=== PATIENT | female | born 1965 | race Caucasian/White ===

== ENCOUNTER 2017-07-31 13:36 | Emergency (ER) | payer OTHER, SELFPAY ==
[2017-07-31 13:36] VITALS: BP 124/99; PULSE 88; RESP 20; TEMP 36.6; O2SAT 99; BMI 28.8
--- NOTE | 2017-07-31 14:22 | CT_ITS ---
STUDY: CT ABDOMEN AND PELVIS WITHOUT CONTRAST REASON FOR EXAM: Female, 52 years old. Low back pain. History of kidney stones. RADIATION DOSAGE (If Supplied By Facility): CTDIvol = ( 18.32 ) mGy, DLP = ( 1083.75 ) mGycm TECHNIQUE: Transaxial images were obtained from the dome of the diaphragm to the symphysis pubis without oral contrast, and without intravenous contrast. Sagittal and coronal images were reconstructed. Individualized dose optimization techniques were used for this CT. COMPARISON: Comparison is made with prior study dated August 04, 2014. FINDINGS: Stable mild degree of dependent bibasilar atelectasis. The visualized portions of the heart are within normal limits. Normal liver. Normal gallbladder and extrahepatic biliary system. Normal spleen. Normal pancreas. Normal bilateral adrenal glands. Normal right kidney. Normal left kidney. Normal visualized stomach. Normal small intestine. There are scattered colonic diverticula consistent with diverticulosis. The appendix is visualized and appears normal. Normal abdominal aorta. Normal inferior vena cava. There is borderline retroperitoneal lymphadenopathy with enlarged nodes no greater than 10mm in the short axis diameter. Several small rounded nodular densities are seen in the peritoneal fat in the right mid abdomen just distal to the kidney on the right side. This may represent mesenteric adenitis. Normal urinary bladder. The previously seen ileostomy has been reversed. There is a small umbilical hernia containing fat. Spondylolysis of the pars interarticularis of the L5 vertebrae. The patient is status post right total hip replacement. CT/Abdomen/Pelvis without Cont IMPRESSION: Possible right mesenteric adenitis. Reversal of the prior ileostomy. Electronically Signed: Geovanni Felton MD at 15:53 EDT Tel [phone], Service support ,
[2017-07-31 14:58] LABS: Bacteria 0 SEEN /hpf (None Seen); Mucous, Urine 0 SEEN /hpf (<or=2+); Red Blood Cells-Urine 0 SEEN /hpf (0-5)
[2017-07-31 15:01] LABS: Color, Urine Yellow (Yellow); Glucose, Dipstick Normal (Normal); Ketone-Dipstick 50 mg/dl (Negative); Leukocyte Esterase-Dipstick 25 /ul (Negative); Nitrite-Dipstick Negative (Negative); Occult Blood-Urine Negative /ul (Negative); Protein-Dipstick 15 mg/dl (Negative); Urine Bilirubin Dipstick 1 mg/dL (Negative); Urine Clarity Clear (Clear); Urine Urobilinogen 4 mg/dl (Normal)
[2017-07-31 15:01] LABS: Absolute Lymphocyte Count 1.61 X10^3/ul (0.83-4.51); Absolute Neutrophil Count 5.5 X10^3/uL (2.0-7.7); Basophil# 0.02 X10^3/uL; Basophil% 0.3 % (0-1); Eosinophils% 1.3 % (0-5); Hematocrit 46.9 % (37-47); Hemoglobin 15.9 g/dl (12.0-15.0); Lymphocyte # 1.61 X10^3/ul (4.0); Lymphocyte % 20.7 % (19-41); Mean Corp Hgb Conc 33.9 g/gl (32-36); Mean Corpuscular Hgb 28.4 pg (27.0-32.0); Mean Corpuscular Volume 83.8 fL (81-99); Mean Platelet Vol. 10.5 fl (6.2-12.0); Monocyte# 0.55 X10^3/uL; Monocyte% 7.1 % (0-10); Neutrophil # 5.49 X10^3/uL (2.7-7.7); Neutrophil % 70.5 % (47-70); POSITIVE COUNT NO; POSITIVE DIFFERENTIAL NO; POSITIVE MORPHOLOGY NO; Platelet Count 253 K/mm3 (150-450); RBC Distribution Width CV 12.8 % (11.6-14.6); RBC Distribution Width SD 38.4 fl (35.1-43.9); White Blood Count 7.8 K/mm3 (4.4-11.0)
[2017-07-31 15:06] LABS: Squamous Epithelial Cells - UA 0-5 SEEN /hpf (5-10); White Blood Cells 0-5 SEEN /hpf (0-5)
[2017-07-31] MEDS: Ketorolac 30 MG/ML Syringe IV (15:06)
[2017-07-31] MEDS: Ondansetron 4 MG/2 ML Vial IV (15:06)
[2017-07-31 15:13] LABS: Anion Gap 7 (5-15); BUN 22 mg/dL (7-18); BUN/Creat Ratio 25.9 RATIO (10-20); Calcium,Total 9.4 mg/dL (8.5-10.1); Chloride 100 mmol/L (98-107); Creatinine, Serum 0.85 mg/dL (0.55-1.02); EST Glomerular Filtration Rate 75 mL/min (>60); Est Glom Filt Rate - Afr Amer 91 mL/min (>60); Estimated Creatinine Clearance 82.75 ml/min; Glucose 106 mg/dL (74-106); Potassium 3.2 mmol/L (3.5-5.1); Sodium Level 138 mmol/L (136-145)
[2017-07-31] MEDS: HYDROmorphone 1 MG/ML Syringe IV (16:07)
--- NOTE | 2017-07-31 16:46 | ED.DCSUM_ITS ---
- ER Visit Summary Date of Service: 07/31/17 Chief Complaint: Back pain History of Present Illness: The patient is a 52 F presenting with left lower back pain. She states this started suddenly while she was seated doing her makeup. She has pain in the left low back. It does not radiate to her legs. She denies fever or chills. Denies chest pain or shortness of breath. Denies weakness or numbness. Denies bowel or bladder incontinence. Denies dysuria or hematuria. Physical Examination: Vitals are stable. Patient is afebrile. Alert no acute distress. HEENT exam is unremarkable. Neck is supple. Lungs are clear and equal bilaterally. Heart is regular rate and rhythm. Abdomen is soft nontender nondistended. Back; left paraspinal muscle tenderness, no midline tenderness. Extremities are unremarkable. Skin is warm and dry. No focal neurologic deficit. Normal strength and sensation Remainder of exam is unremarkable. Emergency Department Course and Treatment: Patient is given Toradol, Zofran and continues to have pain. She was then given Dilaudid with improvement. CBC is unremarkable. Chemistries show potassium 3.2, BUN 22. Urinalysis positive for ketones, 0-5 white cells. She was given IV fluids. CT abdomen pelvis without contrast shows possible mesenteric adenitis. There is borderline retroperitoneal lymphadenopathy with enlarged nodes no greater than 10mm in the short axis diameter. Several small rounded nodular densities are seen in the peritoneal fat in the right mid abdomen just distal to the kidney on the right side. This may represent mesenteric adenitis. She is advised to follow-up with her primary care physician for these findings. She has improvement of her pain on reevaluation. Advised return to ED for any worsening complaints. Disposition: Discharged home Impression: Acute back pain This note was generated with [employer] dictation software. It may contain incorrect words, spelling, and punctuation that were not noted in review of the chart prior to signing ED Disposition - Plan for ED Patient: Chief Complaint: Back Referrals: Alex Keane DO [Primary Care Provider] -
--- NOTE | 2017-07-31 16:57 | ED.DEP ---
ED Disposition - Plan for ED Patient: Chief Complaint: Back Instructions: ED Flank Pain Uncertain Cause Prescriptions: Naproxen [Naprosyn] 500 mg PO BID PRN #20 tablet Cyclobenzaprine [Flexeril] 10 mg PO TID PRN #20 tablet PRN Reason: Muscle Spasm Referrals: Alex Keane DO [Primary Care Provider] -
[2017-07-31 17:26] VITALS: BP 118/84; PULSE 87; RESP 16; O2SAT 97
--- NOTE | 2017-07-31 17:27 | ED.RN ---
REVIEWED D/C INSTRUCTIONS, FOLLOW UP CARE, PRESCRIPTIONS, AND S/S THAT WOULD WARRANT A RETURN TO THE ED WITH PT. PT VERBALIZED AN UNDERSTANDING AND DENIES FURTHER QUESTIONS FOR THIS RN. PT SKIN P/W/D, RESP EVEN AND UNLABORED, PT A&O X 3, NO DISTRESS NOTED. PT AMBULATED OUT OF ED, GAIT STEADY.
== END 2017-07-31 17:28 | disposition home or self-care (01) ==
PROVIDERS: Emergency Provider Emergency Medicine; Family Provider Family Medicine; PCP Family Medicine
DX: M54.5 Low back pain (principal); Z79.899 Other long term (current) drug therapy
CPT/HCPCS: 74176; 80048; 81001; 85025; 96374; 96375; 99283; J7030; J7040; A4216; J2405

== ENCOUNTER 2019-01-11 12:17 | Emergency (ER) | payer OTHER, SELFPAY ==
[2019-01-11 12:17] VITALS: BP 154/76; PULSE 70; RESP 16; TEMP 36.3; O2SAT 97; BMI 32.6
--- NOTE | 2019-01-11 13:16 | RAD_ITS ---
STUDY: X-RAY - RIGHT KNEE REASON FOR EXAM: Female, 53 years old. Knee pain. TECHNIQUE: 4 view(s) of the knee. COMPARISON: None. FINDINGS: Normal visualized distal femur. Normal visualized proximal tibia and fibula. Normal proximal tibiofibular articulation. There is no demonstrated fracture. There is chondrocalcinosis of the medial and lateral joint compartments. There is mild narrowing of the medial joint compartment. Normal patellofemoral articulation. There is no demonstrated joint effusion. The soft tissue structures are unremarkable. RAD/Knee 4 or More Views IMPRESSION: Degenerative arthrosis. Electronically Signed: Rmairo Garcia MD at 13:36 EST Tel , Service support ,
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
[2019-01-11 14:03] VITALS: RESP 16
== END 2019-01-11 14:03 | disposition home or self-care (01) ==
PROVIDERS: Emergency Provider Emergency Medicine; Family Provider Family Medicine; PCP Family Medicine
DX: S76.811A Strain of other specified muscles, fascia and tendons at thigh level, right thigh, initial encounter (principal); E66.9 Obesity, unspecified; K21.9 Gastro-esophageal reflux disease without esophagitis; Z87.891 Personal history of nicotine dependence; X50.1XXA Overexertion from prolonged static or awkward postures, initial encounter; Y93.01 Activity, walking, marching and hiking; Y92.89 Other specified places as the place of occurrence of the external cause; Y99.8 Other external cause status
CPT/HCPCS: 73564; 99282

== ENCOUNTER → 2020-06-16 10:40 | Outpatient (CLI) | payer OTHER, SELFPAY ==
--- NOTE | 2020-06-16 10:40 | EKG12_ITS ---
Test Reason : PREOP Blood Pressure : / mmHG Vent. Rate : 071 BPM Atrial Rate : 071 BPM P-R Int : 166 ms QRS Dur : 076 ms QT Int : 374 ms P-R-T Axes : 052 -01 040 degrees QTc Int : 406 ms Normal sinus rhythm Normal ECG Confirmed by AYDIN KURTZ, WALLACE ([id number]), field map editor CLOVIS OWENS ([id number]) on 06/17/2020 11:53:18 AM Referred By: Rustam Hurley Confirmed By:WALLACE PERRIN MD
[2020-06-16 11:29] LABS: Hematocrit 45.7 % (37-47); Hemoglobin 14.3 g/dL (12.0-15.0); Mean Corp Hgb Conc 31.3 g/dL (32-36); Mean Corpuscular Hgb 27.4 pg (27.0-32.0); Mean Corpuscular Volume 87.5 fL (81-99); Mean Platelet Vol. 10.4 fl (6.2-12.0); Platelet Count 275 K/mm3 (150-450); RBC Distribution Width CV 12.8 % (11.6-14.6); Red Blood Count 5.22 M/mm3 (4.2-5.4); White Blood Count 7.8 K/mm3 (4.4-11.0)
[2020-06-16 12:14] LABS: Anion Gap 3 (5-15); BUN 16 mg/dL (7-18); BUN/Creat Ratio 18.9 RATIO (10-20); Calcium,Total 9.4 mg/dL (8.5-10.1); Chloride 105 mmol/L (98-107); Creatinine, Serum 0.85 mg/dL (0.55-1.02); EST Glomerular Filtration Rate 75 mL/min (>60); Est Glom Filt Rate - Afr Amer 90 mL/min (>60); Glucose 102 mg/dL (74-106); Potassium 4.3 mmol/L (3.5-5.1); Sodium Level 138 mmol/L (136-145)
== END ==
PROVIDERS: PCP Student in an Organized Health Care Education/Training Program; Referring Provider Physician Assistant; Visit Provider Physician Assistant
DX: Z01.818 Encounter for other preprocedural examination (principal); Z11.52 Encounter for screening for COVID-19
CPT/HCPCS: 36415; 80048; 85027; 87426; 93005; C9803

== ENCOUNTER → 2022-12-20 | Outpatient (CLI) | payer OTHER, SELFPAY ==
--- NOTE | 2022-12-20 11:13 | EKG12_ITS ---
Test Reason : PRE-OP Blood Pressure : / mmHG Vent. Rate : 069 BPM Atrial Rate : 069 BPM P-R Int : 162 ms QRS Dur : 072 ms QT Int : 374 ms P-R-T Axes : 041 -12 050 degrees QTc Int : 400 ms Normal sinus rhythm Normal ECG Confirmed by EDUIN KURTZ, JONA ([id number]), editor greeting card RICK SERRA ([id number]) on 12/21/2022 10:07:49 AM Referred By: Ramon Olmos Confirmed By:JONA DENNY MD
[2022-12-20 11:59] LABS: Hematocrit 44.7 % (37-47); Mean Corp Hgb Conc 31.3 g/dL (32-36); Mean Corpuscular Hgb 27.2 pg (27.0-32.0); Mean Corpuscular Volume 86.8 fL (81-99); Mean Platelet Vol. 10.2 fl (6.2-12.0); Platelet Count 307 K/mm3 (150-450); RBC Distribution Width CV 13.1 % (11.6-14.6); RBC Distribution Width SD 41.6 fl (35.1-43.9); Red Blood Count 5.15 M/mm3 (4.2-5.4); White Blood Count 6.6 K/mm3 (4.4-11.0)
[2022-12-20 13:28] LABS: Anion Gap 5 (5-15); BUN 24 mg/dL (7-18); BUN/Creat Ratio 31.2 RATIO (10-20); Calcium,Total 9.6 mg/dL (8.5-10.1); Chloride 108 mmol/L (98-107); Creatinine, Serum 0.77 mg/dL (0.55-1.02); EST Glomerular Filtration Rate 83 mL/min (>60); Est Glom Filt Rate - Afr Amer 100 mL/min (>60); Glucose 101 mg/dL (74-106); Potassium 4.4 mmol/L (3.5-5.1); Sodium Level 141 mmol/L (136-145)
== END | disposition home or self-care (01) ==
PROVIDERS: PCP Nurse Practitioner Primary Care; Referring Provider Otolaryngology; Visit Provider Otolaryngology
DX: Z01.818 Encounter for other preprocedural examination (principal)
CPT/HCPCS: 36415; 80048; 85027; 93005

== ENCOUNTER → 2023-02-05 | Outpatient (CLI) | payer OTHER, SELFPAY ==
[2023-02-05 13:56] LABS: Hematocrit 45.2 % (37-47); Hemoglobin 14.5 g/dL (12.0-15.0); Mean Corp Hgb Conc 32.1 g/dL (32-36); Mean Corpuscular Hgb 27.5 pg (27.0-32.0); Mean Corpuscular Volume 85.6 fL (81-99); Mean Platelet Vol. 9.7 fl (6.2-12.0); Platelet Count 311 K/mm3 (150-450); RBC Distribution Width CV 13.5 % (11.6-14.6); RBC Distribution Width SD 41.7 fl (35.1-43.9); Red Blood Count 5.28 M/mm3 (4.2-5.4); White Blood Count 7.5 K/mm3 (4.4-11.0)
[2023-02-05 14:26] LABS: Anion Gap 4 (5-15); BUN 18 mg/dL (7-18); Calcium,Total 9.6 mg/dL (8.5-10.1); Chloride 106 mmol/L (98-107); Creatinine, Serum 0.78 mg/dL (0.55-1.02); EST Glomerular Filtration Rate 81 mL/min (>60); Est Glom Filt Rate - Afr Amer 98 mL/min (>60); Glucose 99 mg/dL (74-106); Potassium 4.2 mmol/L (3.5-5.1); Sodium Level 137 mmol/L (136-145)
== END | disposition home or self-care (01) ==
LOC: LAB 13:39
PROVIDERS: PCP Nurse Practitioner Primary Care; Referring Provider Otolaryngology; Visit Provider Otolaryngology
DX: Z01.818 Encounter for other preprocedural examination (principal)
CPT/HCPCS: 36415; 80048; 85027

== ENCOUNTER → 2023-04-02 | Outpatient (CLI) | payer OTHER, MEDICAID, SELFPAY ==
--- OUTSIDE RECORDS SUMMARY | 2023-04-02 10:26 | XMS RPT_ITS | CCD ---
Author Name Unknown Address [address] [place] [address] Organization [facility] Care Team Providers Care Road Machine Operator Name Role Phone ARLENE ROBLES Unavailable Unavailable ARLENE ROBLES Unavailable Unavailable LUDWIN CRAWFORD Unavailable Elmer RODRIGUEZ DO, DR MARQUEZ Primary Care Physician [phone] SHARMAINE ARRIAGA, ANNA Primary Care Physician ANNA GRAVES Attending Sameer ARRIAGA, [facility] Primary Care NELA Sutherland MD Attending Unavailable SHARMAINE ARRIAGA, [facility] Primary Care Sameer RODRIGUEZ DO, DR MARQUEZ Primary Care Unavailable ARLENE ROBLES MD Attending Leeann RODRIGUEZ DO, DR MARQUEZ Primary Care Unavailable ARLENE ROBLES MD Attending Leeann ARRIAGA, [facility] Primary Care MARCOS Craig DO Attending Unavailable MARCOS SCHREIBER DO Attending Unavailable SHARMAINE ARRIAGA, [facility] Primary Care Sameer ARRIAGA, [facility] Primary Care MARCOS Craig DO Attending Unavailable SHARMAINE ARRIAGA, [facility] Primary Care Sameer ARRIAGA, ANNA Attending Sameer awad Allergies Allergy Classification Reported Allergen(s) Allergy Type Date of Onset Reaction(s) Facility (4 sources) Aspirin; Translations: [aspirin] Drug Allergy Nausea (finding) [facility] (4 sources) Morphine; Translations: [morphine] Drug Allergy Weal (disorder) [facility] Medications Current Medications Medication Drug Class(es) Dates Sig (Normalized) Sig (Original) meloxicam 15 mg oral tablet (4 sources) Nonsteroidal Anti-inflammatory Drug Start: 08-04-2020 meloxicam 15 mg oral tablet Dose : 15 mg = 1 tab(s), Oral, qDay, # 30 tab(s), 0 Refill(s) Start Date: 08/04/20 Status: Ordered MiscMED Miscellaneous Medication (4 sources) Start: 04-30-2022 MiscMED Miscellaneous Medication See Instructions, pt takes B1, B3, B6, and B12 supplements, unsure of the dose, 0 Refill(s), 99.5 Start Date: 04/30/22 Status: Ordered Completed/Discontinued Medications Medication Drug Class(es) Dates Sig (Normalized) Sig (Original) LORazepam 1 mg oral tablet (4 sources) Benzodiazepine Start: 08-06-2019 LORazepam 1 mg oral tablet Dose : 1 mg = 1 tab(s), Oral, TID, PRN as needed for anxiety, 0 Refill(s), 97.7 Start Date: 08/06/19 Status: Ordered Problems Active Problems Problem Classification Problem Date Documented Date Episodic/Chronic Anxiety disorders (4 sources) Anxiety 01-07-2020 Chronic Cardiac dysrhythmias (4 sources) Palpitations 01-08-2020 Episodic Deficiency and other anemia (4 sources) Anemia 08-06-2019 Episodic Diabetes mellitus without complication (3 sources) Prediabetes; Translations: [Prediabetes] 04-30-2022 Episodic Diverticulosis and diverticulitis (4 sources) Diverticular disease 01-08-2020 Chronic Esophageal disorders (4 sources) Gastroesophageal reflux disease 01-07-2020 Chronic Nonspecific chest pain (4 sources) Left sided chest pain 01-08-2020 Episodic Nutritional deficiencies (5 sources) Vitamin D deficiency; Translations: [Vitamin D deficiency, unspecified] 08-06-2019 Chronic Other eye disorders (4 sources) Pain in eye 01-08-2020 Episodic Other lower respiratory disease (4 sources) Rib pain 01-08-2020 Episodic Other lower respiratory disease (2 sources) Snoring 04-30-2022 Episodic Other nutritional; endocrine; and metabolic disorders (4 sources) Hypercalcemia 08-06-2019 Chronic Other nutritional; endocrine; and metabolic disorders (6 sources) Obesity 08-06-2019 Chronic Other nutritional; endocrine; and metabolic disorders (2 sources) Weight gain 04-30-2022 Episodic Residual codes; unclassified (2 sources) Frequent night waking 04-30-2022 Chronic Residual codes; unclassified (4 sources) Insomnia 01-07-2020 Episodic Residual codes; unclassified (2 sources) History of partial resection of colon 06-27-2022 Episodic Screening and history of mental health and substance abuse codes (4 sources) Ex-smoker 01-08-2020 Episodic Thyroid disorders (4 sources) Hyperthyroidism 08-06-2019 Chronic Unclassified (1 source) Unknown / UNK(Unknown) Onset: 09-06-2016 Unclassified (4 sources) History of clinical finding in subject 01-08-2020 Unclassified (4 sources) Patient encounter status 04-30-2022 Past or Other Problems Problem Classification Problem Date Documented Da te Episodic/Chronic Unclassified (1 source) E05.90 Onset: 09-06-2016 Results Test Name Value Interpretation Reference Range Facil ity Encounters Encounter Date Encounter Type Care Provider Facility Start: 12-06-2022 End: 12-07-2022 ambulatory NELA LOTT MD Facility:A Start: 11-28-2022 ambulatory MARCOS SCHREIBER DO Facility :B Start: 10-25-2022 End: 10-26-2022 ambulatory ANNA SEBRIANA VOICE WRITING REPORTER-COMBAT SYSTEMS OFFICER Facility:B Start: 10-25-2022 End: 10-25-2022 Patient encounter procedure ANNA SEFFENS VOICE WRITING REPORTER-COMBAT SYSTEMS OFFICER Issue Outpatient Lab Start: 10-02-2022 ambulatory ANNA SEFFEN S VOICE WRITING REPORTER-COMBAT SYSTEMS OFFICER Facility:B Start: 07-24-2022 ambulatory ANNA SEFFEN S VOICE WRITING REPORTER-COMBAT SYSTEMS OFFICER Facility:B Start: 07-03-2022 End: 07-04-2022 ambulatory ANNA SEFFENS VOICE WRITING REPORTER-COMBAT SYSTEMS OFFICER Facility:B Start: 07-03-2022 End: 07-03-2022 Patient encounter procedure ANNA SEFFENS VOICE WRITING REPORTER-COMBAT SYSTEMS OFFICER [facility] Start: 04-19-2022 End: 04-20-[address] ALMA RODRIGUEZ DO Facility:B Start: 04-19-2022 End: 04-19-2022 Patient encounter procedure ARLENE ROBLES MD Issue Outpatient Lab Start: 04-10-2022 End: 04-11-[address] ALMA RODRIGUEZ DO Facility:B Start: 04-10-2022 End: 04-10-2022 Patient encounter procedure ARLENE ROBLES MD Issue Outpatient Lab Start: 09-06-2016 End: 09-07-2016 Ambulatory ARLENE ROBLES Facility:[facility] Procedures Date Procedure Procedure Detail Performing Clinician Start: 11-02-2014 Ileostomy operation JAMI ROBLES MD Immunizations Immunization Date Immunization Notes Care Provider Fa cili 01-08-2020 influenza, injectabl e, quadrivalent, preservative free; Translations: [Fluarix PF Quadrivalent ] ARLENE ROBLES MD [facility] Issue Payers Date Payer Category Payer Unknown [id number] 2016 Unknown [id number] 1965 Unknown [id number] 2.16.8 [id number] 1965 Unknown [id number] 2.16.8 [id number] 1967 Unknown [id number] 2.16.8 [id number] 1965 Unknown [id number] 2.16.8 [id number] 1967 Unknown [id number] 2.16.8 [id number] 1967 Unknown [id number] 2.16.8 [id number] 1967 Unknown [id number] 2.16.8 [id number] 1965 Unknown [id number] 2.16.8 [id number] Social History Date Type Detail Facility Start: 08-06-2019 Tobacco smoking status Ex-smoker (fi nding) [facility] Sex Assigned At Female [facility] Evaluation + Plan note Note Date & Type Note Facility Evaluation + Plan note Future Appointments Appointment Date:04/12/2022 03:30:00 PM Scheduled Provider:ARLENE ROBLES MD Location:[facility] Appointment Type:ENDO OV [facility] Evaluation + Plan note LaboratoryRadiology Note Date & Type Note Facility Evaluation + Plan note Future Appointments Appointment Date:10/30/2022 01:40:00 PM Scheduled Provider:DOMINIQUE JASMINE APRN, CNP Location:[facility] Appointment Type:PC OV Follow Up Future Scheduled [id number] Hemoglobin 04/30/22Lipid Profile 04/30/22Vitamin D Level 04/30/22Complete Metabolic Panel 04/30/22MA Mammo Screening Bilateral w/ All 05/14/22 [facility] Evaluation + Plan note Radiology Note Date & Type Note Facility Evaluation + Plan note Future Appointments Appointment Date:10/31/2022 01:30:00 PM Scheduled Provider:ANNA SCHMID Location:[facility] Appointment Type:PC OV Follow Up Appointment Date:12/06/2022 08:00:00 PM Scheduled Provider: Location:[facility] Appointment Type:FREDO C-PAP (Continuous Positive Airway Pre Future Scheduled TestsMA Mammo Screening Bilateral w/ All 05/14/22 [facility] Hospital course Narrative Note Date & Type Note Facility Hospital course Narrative No data available for this section [facility] Hospital Discharge instructions Note Date & Type Note Facility Hospital Discharge instructions No data available for this section [facility] Progress note Note Date & Type Note Facility Progress note No data available for this section [facility] Summary Purpose Family History No Family History Records Found No data available for this section No Family History Records Found Advance Directives No Advanced Directives Records FoundNo Advanced Directives Records Found Additional Source Comments INFORMATION SOURCE (unrecogn ized section and content) DATE CREATED AUTHOR AUTHOR'S ORGANDEONTE ATION 12/19/2022 [facility] ([place]) Care Team (unrecognized sect ion and content) Care Team Personnel Name: Malena Salas Position: Quality Review Member Role: Talent Acquisition Project Manager Name: ALMA RODRIGUEZ DO Position: P4 Physician - Primary Care Member Role: Primary Care Physician Address: Address: [address] [place] [address] Care Team Related Persons Name: MARLENE RAPHAEL Address: Home [address] [place], [place] [id number] [place] Name: INGA RAPHAEL Address: Home [address] [place], [place] [id number] Care Team Personnel Name: Malena Salas Position: Quality Review Member Role: Talent Acquisition Project Manager Name: ALMA RODRIGUEZ DO Position: P4 Physician - Primary Care Member Role: Primary Care Physician Address: Address: [address] [place] [address] Care Team Related Persons Name: MARLENE RAPHAEL Address: Home [address] [place], [place] [id number] [place] Name: INGA RAPHAEL Address: Home [address] [place], [place] [id number] Patient Care team informatio n (unrecognized section and content) Care Team Personnel Name: Malena Salas [employer] Position: Quality Review Member Role: Talent Acquisition Project Manager Name: ANNA SCHMID Position: P4 Advanced Tube Mill Operator Member Role: Primary Care Physician Address: Address: [address] [place] [address] Care Team Related Persons Name: MARLENE RAPHAEL Address: [address] [place] [place] [id number] Care Team Personnel Name: aMlena SalasltSuni Position: Quality Review Member Role: Talent Acquisition Project Manager Name: ANNA SCHMID NHAN-COMBAT SYSTEMS OFFICER Position: P4 Advanced Tube Mill Operator Member Role: Primary Care Physician Address: Address: [address] [facility] [address] [facility] [place], [place] [address] Care Team Related Persons Name: MARLENE RAPHAEL Address: Home [address] [place], [place] [phone] FOR RECORDS PERTAINING TO PATIENTS WHO ARE OR HAVE BEEN ENROLLED IN A CHEMICAL DEPENDENCY/SUBSTANCEABUSE PROGRAM, SOME INFORMATION MAY BE OMITTED. This clinical summary was aggregated from multiple sources. Caution should be exercised in using it in the provision of clinical care. This summary normalizes information from multiple sources, and as a consequence, information in this document may materially change the coding, format and clinical context of patient data. In addition, data may be omitted in some cases. CLINICAL DECISIONS SHOULD BE BASED ON THE PRIMARY CLINICAL RECORDS. [facility]. provides no warranty or guarantee of the accuracy or completeness of information in this document.
[2023-04-02 10:55] LABS: Hematocrit 44.8 % (37-47); Hemoglobin 14.4 g/dL (12.0-15.0); Mean Corp Hgb Conc 32.1 g/dL (32-36); Mean Corpuscular Hgb 27.6 pg (27.0-32.0); Mean Platelet Vol. 9.7 fl (6.2-12.0); Platelet Count 314 K/mm3 (150-450); RBC Distribution Width CV 13.4 % (11.6-14.6); Red Blood Count 5.21 M/mm3 (4.2-5.4); White Blood Count 7.3 K/mm3 (4.4-11.0)
[2023-04-02 11:23] LABS: Anion Gap 1 (5-15); BUN 19 mg/dL (7-18); BUN/Creat Ratio 25.1 RATIO (10-20); Calcium,Total 9.8 mg/dL (8.5-10.1); Chloride 104 mmol/L (98-107); Creatinine, Serum 0.76 mg/dL (0.55-1.02); EST Glomerular Filtration Rate 84 mL/min (>60); Est Glom Filt Rate - Afr Amer 102 mL/min (>60); Glucose 102 mg/dL (74-106); Potassium 4.1 mmol/L (3.5-5.1); Sodium Level 135 mmol/L (136-145)
== END | disposition home or self-care (01) ==
PROVIDERS: PCP Nurse Practitioner Primary Care; Referring Provider Otolaryngology; Visit Provider Otolaryngology
DX: Z01.818 Encounter for other preprocedural examination (principal)
CPT/HCPCS: 36415; 80048; 85027; 93005

== ENCOUNTER 2023-04-15 15:21 | Outpatient (CLI) | payer OTHER, MEDICAID, SELFPAY ==
--- NOTE | 2023-04-15 12:10 | NASAL_PTH ---
PATHOLOGY RESULTS PATIENT: KRISTEN RAPHAEL LOC: [facility]#:[id number] AGE/SX: 58/F ROOM: RE04/15/[address]: Dr. Ramon Olmos MD : 1965 BED: DIS: 04/15/2023 SPEC #: [id number] RECD: 04/16/23 08:45 STATUS: ROSINA REQ #: [id number] BEVERLY: 04/15/23 12:[address]: Ramon Olmos DEPT: SURGICAL PATHOLOGY RECD BY: Christa Bee ENTERED: 04/16/23 08:46 SP TYPE: NASAL SPEC OTHR DR: Suzi Martin NP [facility] Tissues: Nasal septum, NOS Procedures: Decalcification bone/plaque Surgery Specimen Level III HEADER OPERATION: Septoplasty, submucous resection of inferior turbinates PRE-OP DIAGNOSIS: Deviated nasal septum, obstructive sleep apnea, nasal congestion TISSUE SUBMITTED: Nasal septum MICROSCOPIC DIAGNOSIS Nasal septum: Fragments of cartilage and bone, clinically deviated nasal septum. SJ:ernesto 04/22/2023 MICROSCOPIC DESCRIPTION Slides are reviewed. GROSS DESCRIPTION Received in fixative is one container labeled with the patient's name and designated nasal septum. The specimen consists of multiple irregular fragments of white-call bone and cartilage that in aggregate measure 3.5 x 3.0 x 0.2 cm. The specimen is totally submitted in one cassette after decalcification. / AM:ernesto 04/16/2023 TC:5 CPT: 81239, 73740
--- OUTSIDE RECORDS SUMMARY | 2023-04-15 19:59 | XMS RPT_ITS | CCD ---
Author Name Unknown Address [address] [place] [address] Organization [facility] Care Team Providers Care Director Religious Education Name Role Phone ARLENE ROBLES Unavailable Unavailable ARLENE ROBLES Unavailable Unavailable LUDWIN CRAWFORD Unavailable Elmer RODRIGUEZ DO, DR MARQUEZ Primary Care Physician [phone] SHARMAINE ARRIAGA, ANNA Primary Care Physician ANNA GRAVES Attending Sameer ARRIAGA, [facility] Primary Care NELA Sutherland MD Attending Unavailable SHARMAINE ARRIAGA, [facility] Primary Care Sameer RODRIGUEZ DO, DR MARQUEZ Primary Care Unavailable ARLENE ROBLES MD Attending Leeann RODRIGUEZ DO, DR MARQUEZ Primary Care Unavailable ARLENE ROBLES MD Attending Leeann ARRIAGA, [facility] Primary Care MARCOS Craig DO Attending Unavailable MARCOS SCHREIBER DO Attending Unavailable SHARMAINE ARRIAGA, [facility] Primary Care Sameer ARRIAGA, [facility] Primary Care MARCOS Craig DO Attending Unavailable SHARMAINE ARRIAGA, [facility] Primary Care Sameer ARRIAGA, ANNA Attending Sameer awad Allergies Allergy Classification Reported Allergen(s) Allergy Type Date of Onset Reaction(s) Facility (4 sources) Aspirin; Translations: [aspirin] Drug Allergy Nausea (finding) [facility] (4 sources) Morphine; Translations: [morphine] Drug Allergy Weal (disorder) [facility] Medications Current Medications Medication Drug Class(es) Dates [...] Start: 10-25-2022 End: 10-26-2022 ambulatory ANNA SEBRIANA NEUROSCIENCE SPECIALIST-BATTERY ASSEMBLER Facility:B Start: 10-25-2022 End: 10-25-2022 Patient encounter procedure ANNA SEFFENS NEUROSCIENCE SPECIALIST-BATTERY ASSEMBLER [facility] Start: 10-02-2022 ambulatory ANNA SEFFEN S NEUROSCIENCE SPECIALIST-BATTERY ASSEMBLER Facility:[facility] Start: 07-24-2022 ambulatory ANNA SEFFEN S NEUROSCIENCE SPECIALIST-BATTERY ASSEMBLER Facility:[facility] Start: 07-03-2022 End: 07-04-2022 ambulatory ANNA SEFFENS NEUROSCIENCE SPECIALIST-BATTERY ASSEMBLER Facility:[facility] Start: 07-03-2022 End: 07-03-2022 Patient encounter procedure ANNA SEFFENS NEUROSCIENCE SPECIALIST-BATTERY ASSEMBLER [facility] Start: 04-19-2022 End: 04-20-[address] ALAM RODRIGUEZ DO Facility:[facility] Start: 04-19-2022 End: 04-19-2022 Patient encounter procedure ARLENE ROBLES MD [facility] Start: 04-10-2022 End: 04-11-[address] ALMA RODRIGUEZ DO Facility:[facility] Start: 04-10-2022 End: 04-10-2022 Patient encounter procedure ARLENE ROBLES MD [facility] Start: 09-06-2016 End: 09-07-2016 Ambulatory ARLENE ROBLES Facility:[facility] Procedures Date Procedure Procedure Detail Performing Clinician Start: 11-02-2014 Ileostomy operation JAMI ROBLES MD Immunizations Immunization Date Immunization Notes Care Provider Fa cili 01-08-2020 influenza, injectabl e, quadrivalent, preservative free; Translations: [Fluarix PF Quadrivalent ] ARLENE ROBLES MD [facility] [place] Payers Date Payer Category Payer Unknown [id number] 2016 Unknown [id number] 1967 Unknown [id number] 2.16.8 [id number] 1967 Unknown [id number] 2.16.8 [id number] 1967 Unknown [id number] 2.16.8 [id number] 1967 Unknown [id number] 2.16.8 [id number] 1967 Unknown [id number] 2.16.8 [id number] 1967 Unknown [id number] 2.16.8 [id number] 1967 Unknown [id number] 2.16.8 [id number] 1967 Unknown [id number] 2.16.8 [id number] Social History Date Type Detail Facility Start: 08-06-2019 Tobacco smoking status Ex-smoker (fi nding) [facility] Sex Assigned At Female [facility] Evaluation + Plan note Note Date & Type Note Facility Evaluation + Plan note Future Appointments Appointment Date:04/12/2022 03:30:00 PM Scheduled Provider:ARLENE ROBLES MD Location:[facility] Appointment Type:ENDO OV [facility] Evaluation + Plan note LaboratoryRadiology Note Date & Type Note Facility Evaluation + Plan note Future Appointments Appointment Date:10/30/2022 01:40:00 PM Scheduled Provider:DOMINIQUE JASMINE APRN, CNP Location:[facility] Appointment Type:PC OV Follow Up Future Scheduled [id number] Hemoglobin 04/30/22Lipid Profile 04/30/22Vitamin D Level 04/30/22Complete Metabolic Panel 04/30/22MA Mammo Screening Bilateral w/ All 05/14/22 [facility] Evaluation + Plan note Radiology Note Date & Type Note Facility Evaluation + Plan note Future Appointments Appointment Date:10/31/2022 01:30:00 PM Scheduled Provider:ANNA SCHMID Location:[facility] Appointment Type:PC OV Follow Up Appointment Date:12/06/2022 08:00:00 PM Scheduled Provider: Location:[facility] Appointment Type:FREDO C-PAP (Continuous Positive Airway Pre Future Scheduled TestsMA Mammo Screening Bilateral w/ All 05/14/22 [facility] Hospital course Narrative Note Date & Type Note Facility Hospital course Narrative No data available for this section [facility] Hospital Discharge instructions Note Date & Type Note Facility Hospital Discharge instructions No data available for this section [facility] Progress note Note Date & Type Note Facility Progress note No data available for this section [facility] Summary Purpose Family History No Family History Records Found No data available for this section No Family History Records Found Advance Directives No Advanced Directives Records FoundNo Advanced Directives Records Found Additional Source Comments INFORMATION SOURCE (unrecogn ized section and content) DATE CREATED AUTHOR AUTHOR'S ORGANDEONTE ATION 12/19/2022 [facility] ([place] Care Team (unrecognized sect ion and content) Care Team Personnel Name: Malena Salas Position: Quality Review Member Role: Criminalist Technician Name: ALMA RODRIGUEZ DO Position: P4 Physician - Primary Care Member Role: Primary Care Physician Address: Address: [address] [place] [address] Care Team Related Persons Name: MARLENE RAPHAEL Address: [address] [place], [place] [id number] [place] Name: INGA RAPHAEL Address: Home [address] [place], [place] [id number] Care Team Personnel Name: Malena Salas Position: Quality Review Member Role: Criminalist Technician Name: ALMA RODRIGUEZ DO Position: P4 Physician - Primary Care Member Role: Primary Care Physician Address: Address: [address] [place] [address] Care Team Related Persons Name: MARLENE RAPHAEL Address: Home [address] [place], [place] [id number] [place] Name: INGA RAPHAEL Address: Home [address] [place], [place] [id number] Patient Care team informatio n (unrecognized section and content) Care Team Personnel Name: Malena Salas AultSuni Position: Quality Review Member Role: Criminalist Technician Name: ANNA SCHMID Position: P4 Advanced Tassel Making Machine Operator Member Role: Primary Care Physician Address: Address: [address] [place] [address] Care Team Related Persons Name: MARLENE RAPHAEL Address: [address] [facility] [facility] [place] [id number] Care Team Personnel Name: Malena SalasltSuni Position: Quality Review Member Role: Criminalist Technician Name: ANNA SCHMID NHAN-BATTERY ASSEMBLER Position: P4 Advanced Tassel Making Machine Operator Member Role: Primary Care Physician Address: Address: [address] [facility] Phys[facility] [place], [place] [address] Care Team Related Persons Name: MARLENE RAPHAEL Address: Home [address] [place], [place] [id number] FOR RECORDS PERTAINING TO PATIENTS WHO ARE [...] BE BASED ON THE PRIMARY CLINICAL RECORDS. [facility]. provides no warranty or guarantee of the accuracy or completeness of information in this document.
== END 2023-04-15 23:59 | disposition home or self-care (01) ==
LOC: LABSPEC 15:22
PROVIDERS: PCP Nurse Practitioner Primary Care; Referring Provider Otolaryngology; Visit Provider Otolaryngology
DX: J34.2 Deviated nasal septum (principal); G47.33 Obstructive sleep apnea (adult) (pediatric); R09.81 Nasal congestion
CPT/HCPCS: 88304; 88311

== ENCOUNTER 2023-08-02 09:52 | Emergency (ER) | payer OTHER, MEDICAID, SELFPAY ==
[2023-08-02 09:52] VITALS: BP 143/72; PULSE 87; RESP 14; TEMP 36.6; O2SAT 98; BMI 34.6
--- NOTE | 2023-08-02 10:08 | EDS_ITS ---
HPI History of Present Illness Chief Complaint: Upper Extremity Injury Informant: patient Onset/Context/Timing Onset: Days Context: Gradual Onset Current Severity: Moderate Maximum Severity: Severe Worsened by: Movement Narrative Narrative: Patient presents secondary to left shoulder pain. She was recently doing some mulching. Last evening she noted some aching in her shoulder that spread up into her neck and shoulder blade area last night. She had a hard time getting comfortable. When sitting with her shoulder immobilizer she has very minimal pain, but increased pain with any movement. No paresthesias. She is right-hand dominant. [facility] Medical History (Updated 08/02/23 @ 10:[address] Geovanna Du MD) Anxiety History of diverticulosis Pre-diabetes Home Medications ?Medication ?Instructions ?Recorded ?Last Taken ?Type lorazepam 1 mg tablet 1 mg PO DAILY PRN PRN Anxiety 05/15/14 Unknown History methimazole 5 mg tablet 5 mg PO DAILY 07/05/15 Unknown History buspirone 5 mg tablet 10 mg PO TID 07/31/17 Unknown History cyclobenzaprine 10 mg tablet 10 mg PO TID PRN Muscle Spasm ##20 07/31/17 Unknown Rx naproxen 500 mg tablet 500 mg PO BID PRN #20 tabs 07/31/17 Unknown Rx cyclobenzaprine 10 mg tablet 10 mg PO TID PRN Muscle Spasm #20 08/02/23 Unknown Rx TABLETS lidocaine 5 % topical patch 1 patch topical DAILY #15 ea 08/02/23 Unknown Rx (Lidoderm) naproxen 500 mg tablet (Naprosyn) 500 mg PO BID PRN pain #20 tabs 08/02/23 Unknown Rx Allergy/AdvReac Type Severity Reaction Status Date / Time morphine Allergy Rash Verified 08/02/23 09:53 aspirin AdvReac Nausea Verified 08/02/23 09:53 Social History Smoking Status: Former smoker ROS ROS ED Constitutional Constitutional ED: Denies chills or fever(s) Eyes Eyes: Denies discharge from eye(s) ENT ENT ED: Denies discharge from eye(s), rhinorrhea or sore throat Cardiovascular Cardiovascular: Denies chest pain Respiratory/Chest Respiratory/Chest: Denies cough or dyspnea Gastrointestinal Gastrointestinal: Denies abdominal pain, nausea or vomiting Musculoskeletal Musculoskeletal: Reports extremity pain and neck pain; Denies back pain Integumentary Denies Abrasions or rash Neurologic Neurologic: Denies paresthesias or weakness Psychiatric Psychiatric: Denies anxiety or depression Allergic/Immunologic Allergic/Immunologic ED: Denies lip swelling or urticaria EXAM Physical Exam Const Vital Signs: 08/02/23 09:52 Temperature 98 F Temperature Source Temporal Pulse Rate 87 Respiratory Rate 14 Blood Pressure 143/72 H Blood Pressure Mean 95 Pulse Ox 98 Oxygen Delivery Method Room Air Positive well nourished and well developed General Appearance ED: well developed HEENT Reports moist mucous membranes Eyes EOMs intact bilaterally Chest Wall inspection of chest normal and palpation of chest normal Resp normal respiratory effort and clear to auscultation bilaterally Cardio regular rate and regular rhythm GI non-tender Palpation: soft Extremity Extremity Narrative: Reproducible muscular tenderness around the left shoulder. No obvious evidence of deformity. Good distal pulses. Slow but purposeful range of motion. Neuro oriented x3 and moves all extremities Psych mental status grossly normal MDM MDM MDM Narrative Medical decision making narrative: Patient did take Tylenol prior to arrival. She is given a dose of naproxen here. Left shoulder x-rays obtained to evaluate for any acute bony injury or displacement. Treatment and Re-Evaluation Narrative: Left shoulder x-rays per my interpretation reveal no acute abnormality. Radiology interpretation reviewed and agrees. On repeat evaluation patient continues to have reproducible muscular tenderness. I advised her that this does not represent cardiac pain and she does not need a cardiac workup. We will write her prescription for naproxen, Flexeril, and Lidoderm patches. Return instructions provided. Patient comfortable with the plan. Discharge Plan Triage Chief Complaint: Upper Extremity Injury ED Provider: Geovanna Du Dx/Rx/DC Orders Clinical Impression: Left shoulder strain, Muscle spasm Instructions: ED Muscle Spasm, ED Shoulder Sprain Prescriptions: New naproxen [Naprosyn] 500 mg tablet 500 mg PO BID PRN (Reason: pain) Qty: 20 0RF cyclobenzaprine 10 mg tablet 10 mg PO TID PRN (Reason: Muscle Spasm) Qty: 20 0RF lidocaine [Lidoderm] 5 % adhesive patch,medicated 1 patch topical DAILY Qty: 15 0RF Rx Instructions: leave on most painful area for up to 12 hrs No Action lorazepam 1 MG tablet 1 mg PO DAILY PRN PRN (Reason: Anxiety) Patient Comments: ANXIETY methimazole 5 MG tablet 5 mg PO DAILY Patient Comments: 4 X PER WEEK buspirone 5 MG tablet 10 mg PO TID cyclobenzaprine 10 MG tablet 10 mg PO TID PRN (Reason: Muscle Spasm) Qty: 20 0RF naproxen 500 MG tablet 500 mg PO BID PRN Qty: 20 0RF Primary Care Provider: Suzi Martin NP Referrals: Suzi Martin NP, ROTO ROOTER OPERATOR-C [Primary Care Provider] - 1 Week if not improving Print Language: Luxembourgish Disposition Disposition: Home, Self Care
[2023-08-02] MEDS: Naproxen 500 MG Tablet PO (10:11)
--- NOTE | 2023-08-02 10:20 | RAD_ITS ---
STUDY: X-RAY - LEFT SHOULDER REASON FOR EXAM: Female, 58 years old. Pain following injury. TECHNIQUE: 4 view(s) of the shoulder. COMPARISON: None. FINDINGS: Normal glenohumeral articulation. Normal acromioclavicular joint. Normal acromion. Normal humeral head and visualized proximal humerus. The soft tissue structures are unremarkable. Normal visualized pulmonary apex. RAD/Shoulder min 2 Views IMPRESSION: Normal x-ray examination of the shoulder. Electronically Signed: Geovanni Felton MD at 10:36 EDT ,
[2023-08-02 11:13] VITALS: BP 136/76; PULSE 80; RESP 16; TEMP 36.6; O2SAT 99
== END 2023-08-02 11:14 | disposition home or self-care (01) ==
LOC: ED 11:01
PROVIDERS: Emergency Provider Emergency Medicine; PCP Nurse Practitioner Primary Care; Visit Provider Emergency Medicine
DX: S46.912A Strain of unspecified muscle, fascia and tendon at shoulder and upper arm level, left arm, initial encounter (principal); M62.838 Other muscle spasm; Z87.891 Personal history of nicotine dependence; X50.9XXA Other and unspecified overexertion or strenuous movements or postures, initial encounter; Y93.H2 Activity, gardening and landscaping
CPT/HCPCS: 73030; 99282